=== PATIENT | female | born 1970 | race Caucasian/White ===

== ENCOUNTER 2020-09-13 15:29 | Emergency (ER) | payer BC ==
[~2020-09-13] VITALS: Ht 165.1 cm; Wt 81.7 kg
[~2020-09-13 15:29] MED LIST: KEFLEX500 MG PO; NOHOMEMEDICATIONS; VICODIN ES TAB1 EACH PO
[2020-09-13] MEDS ORDERED: CEPHALEXIN500 MG PO ×2 (17:16→17:30)
[2020-09-13] MEDS ORDERED: APAP W/CODEINE1 TA2 PO ×2 (17:16→17:30)
[2020-09-13] MEDS ORDERED: FLEXERIL PO ×2 (17:16→17:30)
[2020-09-13 17:37] VITALS: BP 131/70
== END 2020-09-13 17:38 | disposition home or self-care (01) ==
LOC: M.ERS 15:29
DX: S01.111A Laceration without foreign body of right eyelid and periocular area, initial encounter (principal); S16.1XXA Strain of muscle, fascia and tendon at neck level, initial encounter; S46.811A Strain of other muscles, fascia and tendons at shoulder and upper arm level, right arm, initial encounter; S09.8XXA Other specified injuries of head, initial encounter; Z90.49 Acquired absence of other specified parts of digestive tract; W18.39XA Other fall on same level, initial encounter; Y93.19 Activity, other involving water and watercraft; Y92.89 Other specified places as the place of occurrence of the external cause; Y99.8 Other external cause status

== ENCOUNTER 2020-09-25 10:43 | Emergency (ER) | payer BC ==
[~2020-09-25] VITALS: Ht 165.1 cm; Wt 81.7 kg
[~2020-09-25 10:43] MED LIST changes: +APAP W/CODEINE1 TA2 PO; +CEPHALEXIN500 MG PO; +FLEXERIL PO
[2020-09-25 11:54] VITALS: BP 118/72
== END 2020-09-25 11:55 | disposition home or self-care (01) ==
LOC: M.ERS 10:43
DX: S01.81XD Laceration without foreign body of other part of head, subsequent encounter (principal); Z48.02 Encounter for removal of sutures; Z90.49 Acquired absence of other specified parts of digestive tract; X58.XXXD Exposure to other specified factors, subsequent encounter